=== PATIENT | female | born 1965 | race African-American/Black ===

== ENCOUNTER 2016-07-06 20:01 | Emergency (ER) | payer OTHER ==
[~2016-07-06] VITALS: Ht 162.6 cm; Wt 70.0 kg
[~2016-07-06 20:01] MED LIST: ASPI-1035 PO; DOCU-138 PO; ENAL10TA PO; FERR-63 PO; FLUC200T37 PO; GABA300C PO; IBUP-1510 PO; INSU3INS6 SUBCUT; INSULIN SUBCUT; NOVOLIN N; QUET25TA PO; VITA1CAP64 PO
[2016-07-06 20:24] VITALS: BP 118/88
== END 2016-07-06 23:01 | disposition left against medical advice (07) ==
LOC: ER 20:03
DX: E11.9 Type 2 diabetes mellitus without complications (principal); R11.10 Vomiting, unspecified; Z53.21 Procedure and treatment not carried out due to patient leaving prior to being seen by health care provider
CPT/HCPCS: 82962

== ENCOUNTER 2018-12-05 19:56 | Emergency (ER) | payer OTHER ==
[~2018-12-05] VITALS: Ht 160 cm; Wt 97.5 kg
[~2018-12-05 19:56] MED LIST changes: -ASPI-1035 PO; +ASPI-1393 PO; +FLUC200T PO; -FLUC200T37 PO; -IBUP-1510 PO; +IBUP-2030 PO
[2018-12-05 22:11] LABS: CLARITY URINE CLEAR (CLEAR); COLOR URINE YELLOW (YELLOW); KETONES URINE NEGATIVE (NEGATIVE); LEUKOCYTE ESTERASE URINE NEGATIVE (NEGATIVE); NITRITE URINE NEGATIVE (NEGATIVE); OCCULT BLOOD URINE NEGATIVE (NEGATIVE); PH URINE 6.5 (4.5-8.0); PROTEIN URINE NEGATIVE (NEGATIVE); SPECIFIC GRAVITY URINE 1.019 (1.005-1.030)
[2018-12-06 00:33] VITALS: BP 141/72
== END 2018-12-06 00:38 | disposition home or self-care (01) ==
LOC: ER 19:56
DX: R16.0 Hepatomegaly, not elsewhere classified (principal); E11.65 Type 2 diabetes mellitus with hyperglycemia; F20.9 Schizophrenia, unspecified; F41.9 Anxiety disorder, unspecified; E11.9 Type 2 diabetes mellitus without complications; F91.1 Conduct disorder, childhood-onset type; E66.9 Obesity, unspecified; Z68.38 Body mass index [BMI] 38.0-38.9, adult; Z79.82 Long term (current) use of aspirin
CPT/HCPCS: 81003; 81025; 82962; 99283

== ENCOUNTER 2019-11-07 22:15 | Emergency (ER) | payer OTHER ==
[~2019-11-07] VITALS: Ht 160 cm; Wt 103.0 kg
[~2019-11-07 22:15] MED LIST changes: -ASPI-1393 PO; +ASPI-1497 PO
[2019-11-08 00:40] LABS: CLARITY URINE TURBID (CLEAR); COLOR URINE DARK YELLOW (YELLOW); KETONES URINE TRACE (NEGATIVE); LEUKOCYTE ESTERASE URINE 3+ (NEGATIVE); NITRITE URINE NEGATIVE (NEGATIVE); OCCULT BLOOD URINE 3+ (NEGATIVE); PROTEIN URINE 2+ (NEGATIVE); SPECIFIC GRAVITY URINE 1.021 (1.005-1.030)
[2019-11-08 00:43] LABS: BASOPHILS % 0.8 % (0.0-2.0); EOSINOPHILS % 3.4 % (0.0-5.0); HEMATOCRIT. 38.4 % (36.0-48.0); HEMOGLOBIN. 12.9 g/dL (12.0-16.0); LYMPHOCYTES % 38.1 % (20.0-50.0); MEAN CORPUSCULAR HEMOGLOBIN 29.7 pg (28.0-32.0); MEAN CORPUSCULAR VOLUME 88.7 fL (81.0-99.0); MEAN PLATELET VOLUME 8.5 fl (7.4-10.4); MONOCYTES % 9.4 % (2.0-8.0); NEUTROPHILS % 48.3 % (40.0-76.0); PLATELET 245 x1000/uL (130-400); RED BLOOD CELL COUNT 4.33 mill/uL (4.2-5.4); RED CELL DISTRIBUTION WIDTH 13.4 % (11.6-14.6)
[2019-11-08 00:45] LABS: CHLORIDE 104 mEq/L (98-107)
[2019-11-08] MEDS ORDERED: CEPHALEXIN 250MG CAPSULE PO ONE (01:00)
[2019-11-08 03:24] VITALS: BP 101/54
== END 2019-11-08 03:27 | disposition home or self-care (01) ==
LOC: ER 22:23
DX: N39.0 Urinary tract infection, site not specified (principal); R07.89 Other chest pain; I10 Essential (primary) hypertension; F20.9 Schizophrenia, unspecified; Z98.890 Other specified postprocedural states; Z79.899 Other long term (current) drug therapy
CPT/HCPCS: 36415; 71045; 74018; 80053; 81003; 83880; 84484; 85025; 87077; 87186; 93005; 99285

== ENCOUNTER 2020-04-24 09:47 | Emergency (ER) | payer OTHER ==
[~2020-04-24] VITALS: Ht 160 cm; Wt 80.0 kg
[~2020-04-24 09:47] MED LIST changes: -ENAL10TA PO; +ENAL10TA19 PO
[2020-04-24 10:00] VITALS: BP 143/60
== END 2020-04-24 10:45 | disposition home or self-care (01) ==
LOC: ER 09:47
DX: U07.1 COVID-19 (principal); I10 Essential (primary) hypertension; Z79.899 Other long term (current) drug therapy; F20.9 Schizophrenia, unspecified
CPT/HCPCS: 99281

== ENCOUNTER 2020-11-05 23:32 | Emergency (ER) | payer OTHER | END 2020-11-06 00:47 | disposition left against medical advice (07) | LOC: ER 23:32 | DX: Z53.21 Procedure and treatment not carried out due to patient leaving prior to being seen by health care provider (principal) ==

== ENCOUNTER 2021-05-08 19:47 | Emergency (ER) | payer MEDICAID, OTHER ==
[~2021-05-08] VITALS: Ht 160 cm; Wt 125.0 kg
[2021-05-08 19:52] VITALS: BP 149/47
== END 2021-05-08 23:30 | disposition left against medical advice (07) ==
LOC: ER 19:47
DX: Z53.21 Procedure and treatment not carried out due to patient leaving prior to being seen by health care provider (principal)

== ENCOUNTER 2021-09-22 22:17 | Emergency (ER) | payer MEDICAID ==
[~2021-09-22] VITALS: Ht 160 cm; Wt 86.0 kg
[2021-09-22 23:07] VITALS: BP 150/80
== END 2021-09-22 22:51 | disposition left against medical advice (07) ==
LOC: ER 22:17
DX: Z53.21 Procedure and treatment not carried out due to patient leaving prior to being seen by health care provider (principal)